=== PATIENT | female | born 1950 | race Caucasian/White ===

== ENCOUNTER → 2019-09-15 | Outpatient (CLI) | payer MEDICARE ==
[~2019-09-15] MED LIST: CALC600T12 PO; CHOL100040 PO; L.AC1CAP6 PO; LEVO50TA11 PO; LORA10CA PO; LOSA50TA64 PO; MAGNESIUM PO; MULTIVITAMIN PO; NAPR220C15 PO; OASIS TEARS OU
== END | disposition home or self-care (01) ==
LOC: RAH 13:52
PROVIDERS: ATTEND Internal Medicine Cardiovascular Disease
DX: E04.1 Nontoxic single thyroid nodule (principal); R07.9 Chest pain, unspecified; R94.31 Abnormal electrocardiogram [ECG] [EKG]; E07.9 Disorder of thyroid, unspecified
CPT/HCPCS: 76536

== ENCOUNTER → 2019-10-03 | Outpatient (CLI) | payer OTHER | END | disposition home or self-care (01) | LOC: OIH 13:27 | PROVIDERS: ATTEND Internal Medicine Cardiovascular Disease | DX: Z13.6 Encounter for screening for cardiovascular disorders (principal); K44.9 Diaphragmatic hernia without obstruction or gangrene | CPT/HCPCS: 75571 ==

== ENCOUNTER → 2019-10-13 | Outpatient (CLI) | payer MEDICARE | END | disposition home or self-care (01) | LOC: SHCH 11:10 | PROVIDERS: ATTEND Internal Medicine Cardiovascular Disease | DX: I51.7 Cardiomegaly (principal) | CPT/HCPCS: 93306; 93356 ==

== ENCOUNTER → 2022-09-14 | Outpatient (CLI) | payer MEDICARE ==
[~2022-09-14] MED LIST changes: +CALC-1125 PO; -CALC600T12 PO
== END | disposition home or self-care (01) ==
LOC: RAH 09:15
PROVIDERS: ATTEND Urology
DX: N28.1 Cyst of kidney, acquired (principal); N32.89 Other specified disorders of bladder; R35.0 Frequency of micturition
CPT/HCPCS: 76770

== ENCOUNTER → 2022-12-22 | Outpatient (CLI) | payer OTHER | END | disposition home or self-care (01) | LOC: RAH 12:34 | PROVIDERS: ATTEND Internal Medicine Cardiovascular Disease | DX: Z13.6 Encounter for screening for cardiovascular disorders (principal); I51.5 Myocardial degeneration | CPT/HCPCS: 75571 ==

== ENCOUNTER → 2022-12-27 | Outpatient (CLI) | payer MEDICARE | END | disposition home or self-care (01) | LOC: SHCH 07:56 | PROVIDERS: ATTEND Internal Medicine Cardiovascular Disease | DX: I50.32 Chronic diastolic (congestive) heart failure (principal) | CPT/HCPCS: 93306 ==

== ENCOUNTER → 2023-07-11 | Outpatient (CLI) | payer MEDICARE ==
[2023-07-11 16:22] LABS: CREATININE 0.9 mg/dL (0.5-1.5)
== END | disposition home or self-care (01) ==
LOC: LAB 13:55
PROVIDERS: ATTEND Internal Medicine Cardiovascular Disease
DX: I10 Essential (primary) hypertension (principal)
CPT/HCPCS: 36415; 82565; 84520

== ENCOUNTER → 2023-07-25 | Outpatient (CLI) | payer MEDICARE ==
[~2023-07-25] MED LIST changes: +IOHEXOL 350 MG/ML 100ML INFUS..BTL IV ONE
== END | disposition home or self-care (01) ==
LOC: RAH 10:55
PROVIDERS: ATTEND Internal Medicine Cardiovascular Disease
DX: I25.10 Atherosclerotic heart disease of native coronary artery without angina pectoris (principal); R07.9 Chest pain, unspecified; K44.9 Diaphragmatic hernia without obstruction or gangrene; M47.815 Spondylosis without myelopathy or radiculopathy, thoracolumbar region
CPT/HCPCS: 75574; Q9967